=== PATIENT | male | born 1985 | race Caucasian/White ===

== ENCOUNTER 2025-04-04 14:13 | Emergency (ER) | payer MEDICAID ==
[~2025-04-04] VITALS: Ht 167.6 cm; Wt 84.0 kg
[2025-04-04 14:24] VITALS: O2SAT 98
[2025-04-04] MEDS: CHLORDIAZEPOXIDE 25MG CAPSULE PO ONE (14:55)
[2025-04-04 15:08] LABS: BASOPHILS % 0.9 % (0.0-2.0); EOSINOPHILS % 0.1 % (0.0-5.0); HEMATOCRIT. 34.4 % (42.0-52.0); HEMOGLOBIN. 11.1 g/dL (14.0-18.0); LYMPHOCYTES % 11.2 % (20.0-50.0); MEAN PLATELET VOLUME 8.8 fl (7.4-10.4); MONOCYTES % 13.8 % (2.0-8.0); NEUTROPHILS % 74.0 % (40.0-76.0); PLATELET 162 x1000/uL (130-400); RED BLOOD CELL COUNT 4.39 mill/uL (4.7-6.1); RED CELL DISTRIBUTION WIDTH 19.3 % (11.6-14.6)
[2025-04-04 15:22] LABS: CREATININE 0.9 mg/dL (0.6-1.3)
[2025-04-04 15:23] LABS: UREA NITROGEN BLOOD 10 mg/dL (9-23)
[2025-04-04 15:24] LABS: ASPARTATE AMINOTRANSFERASE 97 IU/L (<34)
[2025-04-04 15:25] LABS: BILIRUBIN DIRECT 0.6 mg/dL (<=3.0); BILIRUBIN TOTAL 1.6 mg/dL (0.1-1.0); PROTEIN TOTAL 8.7 g/dL (6.0-8.3)
[2025-04-04] MEDS ORDERED: CHLO25CA10 MT (17:44)
[2025-04-04] MEDS ORDERED: GABA-1180 MT (17:47)
[2025-04-04 18:14] VITALS: BP 129/78; PULSE 78; RESP 12; TEMP 36.7; O2SAT 99
== END 2025-04-04 18:22 | disposition home or self-care (01) ==
LOC: ER 14:13
DX: R56.9 Unspecified convulsions (principal); F10.20 Alcohol dependence, uncomplicated
CPT/HCPCS: 36415; 71045; 80048; 80076; 83735; 85025; 93005; 99285